=== PATIENT | male | born 1975 | race Caucasian/White ===

== ENCOUNTER 2022-11-10 14:22 | Emergency (ER) | payer OTHER ==
[~2022-11-10] VITALS: Ht 172.7 cm; Wt 79.8 kg
[~2022-11-10 14:22] MED LIST: CYCLOBENZAPRINE10 MG PO; NAPROXEN500 MG PO; OMEPRAZOLE20 MG PO
--- OUTSIDE RECORDS SUMMARY | 2022-11-10 14:24 | XMS ---
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 E.D. VISIT COUNT (12 MO.) 1 SUGEY Clemens TOTAL 1 NOTE: Visits indicate total known visits. ED/UCC VISIT TRACKING (12 MO.) 11/10/2022 14:22 SUGEY [facility] OR TYPE: Emergency COMPLAINT: - ANIMAL BITE INPATIENT VISIT TRACKING (12 MO.) No inpatient visits to display in this time frame [email or web address]
[2022-11-10] MEDS ORDERED: AMOX TR-K CLV1 EAC1 PO (16:32)
[2022-11-10] MEDS ORDERED: MAVYRET 100-401 EACH PO (17:30)
[2022-11-10] MEDS ORDERED: GABAPENTIN300 MG PO (17:30)
[2022-11-10] MEDS ORDERED: IBUPROFEN800 MG PO (17:30)
[2022-11-10] MEDS ORDERED: METHOCARBAMOL750 MG PO (17:31)
== END 2022-11-10 16:53 | disposition home or self-care (01) ==
LOC: ED 14:22
DX: S51.852A Open bite of left forearm, initial encounter (principal); W54.0XXA Bitten by dog, initial encounter; F17.200 Nicotine dependence, unspecified, uncomplicated; Z79.899 Other long term (current) drug therapy
CPT/HCPCS: 73090; 90471; 90715; 99283-25